=== PATIENT | female | born 1970 | race Caucasian/White ===

== ENCOUNTER 2017-12-31 10:13 | Emergency (ER) | payer OTHER ==
[~2017-12-31] VITALS: Ht 170.2 cm; Wt 86.2 kg
[~2017-12-31 10:13] MED LIST: ALPR.25 PO; AMOCLA875 PO; AMOX1XR PO; AMOX500 PO; ATOM40; BUPR150ER; BUPR150ER PO; BUPR150T2; BUPR150T2 PO; CARI350; CARI350 PO; CEPH500 PO; CHLO10 PO; CHLO25 PO; CIPR500 PO; CITA20 PO; CLAR500 PO; CLON.2 PO; CYCL10; CYCL10 PO; DIAZ10 PO; DIAZ5 PO; DICL25ER PO; DISU500 PO; EPINASTINE; ESCI20 PO; FASTIN PO; GUAPHELA PO; HYDACE10B PO; HYDACE5 PO; HYDACE7.5 PO; HYDGUAL120 PO; HYDR120LO TOP; IBUP600 PO; IBUP800; IBUP800 PO; LISHYD1012; LISI10; Lotrisone Cream45 GM TOP; MELO7.5 PO; META800 PO; METPRE4DP PO; NALT50 PO; NAPR500 PO; NEOPOLGRAS OD; OLOP.1OPSO; OXYACE10; OXYACE5T; OXYACE5T PO; OXYM.05NI; PARO25; PAXIL; PAXIL 37.5 MG; PERM5TC TOP; PRED10 PO; PRED20 PO; PROM25 PO; RINGWORM14.2 GM TOP; SULTRIDS PO; SYSTANE; TRAM50; TRAM50 PO; TRAZ50; TRIA55OI; TRIA80TC TOP; ZIPR20
[2017-12-31 11:13] LABS: BASOPHILS ABSOLUTE AUTO 0.05 K/mm3 (0.00-0.23); BASOPHILS PERCENT AUTO 1 % (0-2); EOSINOPHILS ABSOLUTE AUTO 0.05 K/mm3 (0.00-0.68); EOSINOPHILS PERCENT AUTO 1 % (0-6); Hematocrit 41.9 % (33.0-51.0); Hemoglobin 13.7 g/dL (11.5-16.0); IMMATURE GRAN ABSOLUTE AUTO 0.02 K/mm3 (0.00-0.10); IMMATURE GRAN PERCENT AUTO 0 % (0-1); LYMPHOCYTES ABSOLUTE AUTO 2.07 K/mm3 (0.84-5.20); LYMPHOCYTES PERCENT AUTO 26 % (21-46); MONOCYTES ABSOLUTE AUTO 0.53 K/mm3 (0.16-1.47); MONOCYTES PERCENT AUTO 7 % (4-13); Mean Corpuscular HGB 29.2 pg (26.0-34.0); Mean Corpuscular HGB Conc 32.7 g/dL (31.5-36.5); Mean Corpuscular Volume 89 fL (80-100); Mean Platelet Volume 8.3 fL (9.1-12.4); NEUTROPHILS ABSOLUTE AUTO 5.34 K/mm3 (1.96-9.15); NEUTROPHILS PERCENT AUTO 66 % (41-73); Platelet Count 320 K/mm3 (150-400); RDW Coefficient Variation 12.1 % (11.7-14.2); RDW Standard Deviation 39.6 fL (35.1-46.3); Red Blood Cell Count 4.69 M/mm3 (3.80-5.20); White Blood Cell Count 8.06 K/mm3 (4.00-11.30)
[2017-12-31 11:39] LABS: Troponin I <0.015 ng/mL (0.000-0.040)
[2017-12-31 11:41] LABS: Alanine Aminotransfer (ALT/SGP 23 U/L (12-78); Albumin, Blood 3.7 g/dL (3.4-5.0); Albumin/Globulin Ratio 0.9 (0.8-1.8); Alk Phos 48 U/L (50-136); Anion Gap 10 mmol/L (6-16); Aspartate Aminotrans (AST/SGOT 15 U/L (12-37); Bilirubin, Total 0.4 mg/dL (0.1-1.0); Blood Urea Nitrogen 16 mg/dL (8-24); Bun/Creatinine Ratio 23.7 (12.0-20.0); CO2, Blood 24 mmol/L (21-32); Calcium, Blood 8.9 mg/dL (8.5-10.1); Chloride, Blood 108 mmol/L (98-108); Creatinine, Blood 0.68 mg/dL (0.40-1.00); Globulin, Blood 3.9 g/dL (2.2-4.0); Glomerular Filtration Rate >60 (60-); Glucose, Blood 83 mg/dL (70-99); Potassium, Blood 3.8 mmol/L (3.5-5.5); Sodium, Blood 142 mmol/L (136-145); Total Protein, Blood 7.6 g/dL (6.4-8.2)
== END 2017-12-31 12:09 | disposition left against medical advice (07) ==
LOC: ER 10:13
PROVIDERS: Emergency Medicine
DX: Z53.21 Procedure and treatment not carried out due to patient leaving prior to being seen by health care provider (principal)
CPT/HCPCS: 80053; 84484; 85025; 93005; 93010

== ENCOUNTER → 2019-12-29 | Outpatient (CLI) | payer OTHER ==
[2019-12-29 19:31] LABS: BASOPHILS ABSOLUTE AUTO 0.06 K/mm3 (0.00-0.23); BASOPHILS PERCENT AUTO 1 % (0-2); EOSINOPHILS ABSOLUTE AUTO 0.12 K/mm3 (0.00-0.68); EOSINOPHILS PERCENT AUTO 1 % (0-6); Hematocrit 35.4 % (33.0-51.0); Hemoglobin 11.9 g/dL (11.5-16.0); IMMATURE GRAN ABSOLUTE AUTO 0.04 K/mm3 (0.00-0.10); IMMATURE GRAN PERCENT AUTO 0 % (0-1); LYMPHOCYTES PERCENT AUTO 33 % (21-46); MONOCYTES ABSOLUTE AUTO 0.75 K/mm3 (0.16-1.47); MONOCYTES PERCENT AUTO 8 % (4-13); Mean Corpuscular HGB 29.8 pg (26.0-34.0); Mean Corpuscular HGB Conc 33.6 g/dL (31.5-36.5); Mean Corpuscular Volume 89 fL (80-100); Mean Platelet Volume 8.7 fL (9.1-12.4); NEUTROPHILS ABSOLUTE AUTO 5.25 K/mm3 (1.96-9.15); NEUTROPHILS PERCENT AUTO 56 % (41-73); Platelet Count 328 K/mm3 (150-400); RDW Coefficient Variation 12.5 % (11.7-14.2); RDW Standard Deviation 40.4 fL (35.1-46.3); Red Blood Cell Count 3.99 M/mm3 (3.80-5.20); White Blood Cell Count 9.32 K/mm3 (4.00-11.30)
[2019-12-29 20:47] LABS: Anion Gap 5 mmol/L (6-16); Blood Urea Nitrogen 17 mg/dL (8-24); Bun/Creatinine Ratio 23.1 (12.0-20.0); CO2, Blood 30 mmol/L (21-32); Calcium, Blood 8.9 mg/dL (8.5-10.1); Chloride, Blood 108 mmol/L (98-108); Creatinine, Blood 0.74 mg/dL (0.40-1.00); Glomerular Filtration Rate >60 (60-); Glucose, Blood 87 mg/dL (70-99); Potassium, Blood 3.9 mmol/L (3.5-5.5); Sodium, Blood 143 mmol/L (136-145)
== END | disposition home or self-care (01) ==
LOC: LAB EV 19:23 → LAB SHORT 19:23
PROVIDERS: Chiropractor
DX: N93.9 Abnormal uterine and vaginal bleeding, unspecified (principal)
CPT/HCPCS: 80048; 82670; 83001; 84443; 85025

== ENCOUNTER 2020-12-24 08:45 | Day surgery (SDC) | payer OTHER ==
[~2020-12-24] VITALS: Ht 170.2 cm; Wt 86.8 kg
[~2020-12-24 08:45] MED LIST changes: +Flonase 0.05% N16 GM; +ZYRTEC10 M2
== END 2020-12-24 12:01 | disposition home or self-care (01) ==
LOC: ORSCSDS 08:45
PROVIDERS: Internal Medicine Gastroenterology
PROC: 0DBL8ZX Excision of Transverse Colon, Via Natural or Artificial Opening Endoscopic, Diagnostic (ICD-10-PCS; principal; 2020-12-24 10:15)
DX: Z12.11 Encounter for screening for malignant neoplasm of colon (principal); K63.5 Polyp of colon; K57.30 Diverticulosis of large intestine without perforation or abscess without bleeding; Z83.71 Family history of colonic polyps; E66.9 Obesity, unspecified; Z68.30 Body mass index [BMI] 30.0-30.9, adult; Z87.891 Personal history of nicotine dependence; Z79.899 Other long term (current) drug therapy
CPT/HCPCS: 88305; J2704; J7120

== ENCOUNTER 2022-05-13 09:45 | Day surgery (SDC) | payer OTHER ==
[~2022-05-13] VITALS: Ht 170.2 cm; Wt 90.4 kg
[2022-05-13] MEDS ORDERED: Celexa10 MG PO (10:33)
[2022-05-13] MEDS ORDERED: BUPROPION XL450 MG PO (10:34)
--- NOTE | 2022-05-13 12:59 | NUR ---
05/13/22 1259 Christen Soto A PILLOW UNDER HEAD, ARMS SECURED ON PADDED ARM BOARDS, LEFT KNEE POST.
== END 2022-05-13 15:33 | disposition home or self-care (01) ==
LOC: ORSCSDS 09:45
PROVIDERS: Orthopaedic Surgery
PROC: 0SBD4ZZ Excision of Left Knee Joint, Percutaneous Endoscopic Approach (ICD-10-PCS; principal; 2022-05-13 11:30)
DX: S83.242A Other tear of medial meniscus, current injury, left knee, initial encounter (principal); M22.42 Chondromalacia patellae, left knee; I10 Essential (primary) hypertension; Z87.891 Personal history of nicotine dependence; F41.8 Other specified anxiety disorders; Z79.899 Other long term (current) drug therapy
CPT/HCPCS: A9270; J0171; J0690; J1100; J1885; J2250; J2405; J2704; J3010; J7120

== ENCOUNTER 2024-09-05 03:37 | Day surgery (SDC) | payer OTHER ==
[~2024-09-05 03:37] MED LIST changes: +BUPROPION XL450 MG PO; +Celexa10 MG PO
[2024-09-05] MEDS ORDERED: Cosyntropin 0.25 MG / ML 1ML Vial IV ONE (06:45)
[2024-09-05 08:54] VITALS: BP 140/84
[2024-09-05] MEDS ORDERED: DULO30 PO (08:57)
[2024-09-05] MEDS ORDERED: 1/2 NS 250ml250 ML (08:58)
[2024-09-05] MEDS ORDERED: FERSU300 PO (08:58)
== END 2024-09-05 09:48 | disposition home or self-care (01) ==
LOC: ATC 03:37
DX: R79.89 Other specified abnormal findings of blood chemistry (principal); I10 Essential (primary) hypertension; E66.9 Obesity, unspecified; Z68.35 Body mass index [BMI] 35.0-35.9, adult; Z87.891 Personal history of nicotine dependence; Z88.5 Allergy status to narcotic agent; Z79.899 Other long term (current) drug therapy
CPT/HCPCS: 80400; 82533; 96374; J0834